=== PATIENT | female | born 1945 | race Native Hawaiian/Other Pacific Islander ===

== ENCOUNTER 2018-12-07 16:52 | Inpatient (IN) | payer MEDICARE ==
[2018-12-07] MEDS ORDERED: Sodium Chloride 0.9% 500 ML IV STA (17:17)
--- NOTE | 2018-12-07 17:17 | C.PDOC ---
History Of Present Illness 73 y/o female presents to the ER complaining of epigastric abdominal pain. Patient describes the pain as burning and she states that the pain radiates up to her chest. Patient reports that she tried to induce vomiting by using her fi nger but she only had heartburn afterwards. Denies having fever,chills, vomiting, and diarrhea. <Amada Moreno - Last Filed: 12/07/18 18:55> History Per: Patient History/Exam Limitations: no limitations Onset/Duration Of Symptoms: Days Current Symptoms Are (Timing): Still Present Severity: Moderate <Amada Moreno - Last Filed: 12/07/18 18:55> <Giacomo Stoddard - Last Filed: 12/07/18 21:49> Time Seen by Provider: 12/07/18 17:05 Chief Complaint (Nursing): Abdominal Pain Past Medical History Reviewed: Historical Data, Nursing Documentation, Vital Signs Vital Signs: Last Vital Signs Temp 98.9 F 12/07/18 16:54 Pulse 90 12/07/18 16:54 Resp 18 12/07/18 16:54 BP 166/76 H 12/07/18 16:54 Pulse Ox 99 12/07/18 16:54 Primary Care Provider: Junior Sanchez - Medical History PMH: HTN Other Surgeries: Hx of surgeries Family History: States: No Known Family Hx - Social History Hx Alcohol Use: No Hx Substance Use: No - Immunization History Hx Tetanus Toxoid Vaccination: No Hx Influenza Vaccination: Yes Hx Pneumococcal Vaccination: No <Amada Moreno - Last Filed: 12/07/18 18:55> Vital Signs: Last Vital Signs Temp 98.6 F 12/07/18 19:11 Pulse 94 H 12/07/18 19:11 Resp 18 12/07/18 19:11 BP 145/75 12/07/18 19:11 Pulse Ox 99 12/07/18 19:11 <Giacomo Stoddard - Last Filed: 12/07/18 21:49> Review Of Systems Except As Marked, All Systems Reviewed And Found Negative. Constitutional: Negative for: Fever, Chills Cardiovascular: Negative for: Chest Pain Respiratory: Negative for: Shortness of Breath Gastrointestinal: Positive for: Nausea, Abdominal Pain. Negative for: Vomiting, Diarrhea <Amada Moreno - Last Filed: 12/07/18 18:55> Physical Exam - Physical Exam Appears: Non-toxic, No Acute Distress Skin: Normal Color, Warm, Dry Head: Atraumatic, Normacephalic Eye(s): bilateral: Normal Inspection Nose: Normal Oral Mucosa: Moist Neck: Supple Chest: Symmetrical Cardiovascular: Rhythm Regular Respiratory: Normal Breath Sounds, No Rales, No Rhonchi, No Wheezing Gastrointestinal/Abdominal: Soft, Tenderness (very mild tenderness to epigastric area), No Guarding, No Rebound Neurological/Psych: Oriented x3, Normal Speech <Amada Moreno - Last Filed: 12/07/18 18:55> ED Course And Treatment - Laboratory Results Result Diagrams: 12/07/18 17:26 12/07/18 17:26 ECG Rhythm: Sinus Rhythm ECG Interpretation: No Acute Changes Rate From EC O2 Sat by Pulse Oximetry: 99 (RA) Pulse Ox Interpretation: Normal - Radiology CXR: Interpreted by Pr CXR Interpretation: Yes: No Acute Disease Progress Note: Labs,ECG, and CXR ordered.Patient treated with IV Fluids and Protonix IV. <Amada Moreno - Last Filed: 12/07/18 18:55> - Laboratory Results Result Diagrams: 12/07/18 17:26 12/07/18 17:26 Lab Results: PT 14.3 SECONDS (9.7-12.2) H 12/07/18 17:26 INR 1.3 12/07/18 17:26 APTT 45.0 SECONDS (21-34) H 12/07/18 17:26 Troponin I < 0.0120 ng/mL (0.00-0.120) 12/07/18 17:26 Total Bilirubin 1.9 mg/dL (0.2-1.3) H 12/07/18 17:26 AST 69 U/L (14-36) H 12/07/18 17:26 ALT 23 U/L (9-52) 12/07/18 17:26 Alkaline Phosphatase 133 U/L (38-126) H 12/07/18 17:26 Total Protein 8.0 g/dL (6.3-8.3) 12/07/18 17:26 Albumin 3.5 g/dL (3.5-5.0) 12/07/18 17:26 Globulin 4.5 gm/dL (2.2-3.9) H 12/07/18 17:26 Albumin/Globulin Ratio 0.8 (1.0-2.1) L 12/07/18 17:26 Lipase 208 U/L (23-300) 12/07/18 17:26 Pulse Ox Interpretation: Normal <Giacomo Stoddard - Last Filed: 12/07/18 21:49> Disposition - Disposition Disposition Time: 18:55 <Amada Moreno - Last Filed: 12/07/18 18:55> Discussed With DrDarshana: Junior Sanchez Comment: accpeted the pt onhis service and took over the care at 9:48PM Doctor Will See Patient In The: Hospital Counseled Patient/Family Regarding: Studies Performed, Diagnosis - POA Present On Arrival: None <Giacomo Stoddard - Last Filed: 12/07/18 21:49> - Disposition Disposition: HOSPITALIZED Condition: FAIR Forms: [employer] (Sami) - Clinical Impression Clinical Impression: Epigastric pain, Cholecystitis - PA / POLITICAL SCIENCE RESEARCH ASSISTANT / Resident Statement MD/DO has reviewed & agrees with the documentation as recorded. - Scribe Statement The provider has reviewed the documentation as recorded by the Liam Mckeon Provider Attestation All medical record entries made by the Haydeeibe were at my direction and personally dictated by me. I have reviewed the chart and agree that the record accurately reflects my personal performance of the history, physical exam, medical decision making, and the department course for this patient. I have also personally directed, reviewed, and agree with the discharge instructions and disposition. <Amada Moreno - Last Filed: 12/07/18 18:55> Physician Patient Turnover Patient Signed Over To: Giacomo Stoddard Handoff Comments: pending abd US report and dispo <Amada Moreno - Last Filed: 12/07/18 18:55> Decision To Admit <Amada Moreno - Last Filed: 12/07/18 18:55> - Pt Status Changed To: Hospital Disposition Of: Inpatient - Admit Certification Admit to Inpatient:: After my assessment, the patient will require hospitalization for at least two midnights. This is because of the severity of symptoms shown, intensity of services needed, and/or the medical risk in this patient being treated as an outpatient. - InPatient: Physician Admission Certification:: After my assessment, the patient will require hospitalization for at least two midnights. This is because of the severity of symptoms shown, intensity of services needed, and/or the medical risk in this patient being treated as an outpatient. - . Bed Request Type: Regular Admitting Physician: Junior Sanchez <Giacomo Stoddard - Last Filed: 12/07/18 21:49> - . Patient Diagnosis: Epigastric pain, Cholecystitis
[2018-12-07] MEDS ORDERED: Sodium Chloride 0.9% 1,000 ML ONE (17:34)
[2018-12-07 17:36] LABS: BASO % 0.2 % (0.0-2.0); HEMOGLOBIN 12.6 g/dL (11.0-16.0); LYMPH # 0.5 K/uL (1.0-4.3); LYMPH % 12.7 % (20.0-40.0); MEAN CELL VOLUME 99.5 fL (81.0-99.0); MEAN CORPUSCULAR HEMOGLOBIN 33.9 pg (27.0-31.0); MEAN CORPUSCULAR HGB CONC 34.1 g/dL (33.0-37.0); MONO # 0.1 K/uL (0.0-0.8); MONO % 2.8 % (0.0-10.0); NEUT # 3.1 K/uL (1.8-7.0); NEUT % 84.3 % (50.0-75.0); NRBC % 0.2 % (0.0-2.0); RBC 3.71 Mil/uL (3.80-5.20); RED CELL DISTRIBUTION WIDTH 16.7 % (11.5-14.5); WHITE BLOOD COUNT 3.7 K/uL (4.8-10.8)
[2018-12-07 17:46] LABS: INR 1.3; PROTHROMBIN TIME 14.3 SECONDS (9.7-12.2)
[2018-12-07 17:48] LABS: ALB/GLOB RATIO 0.8 (1.0-2.1); ALBUMIN 3.5 g/dL (3.5-5.0); ALT/SGPT 23 U/L (9-52); AST/SGOT 69 U/L (14-36); BLOOD UREA NITROGEN 20 mg/dL (7-17); CALCIUM 9.2 mg/dl (8.6-10.4); GFR NON-AFRICAN AMERICAN > 60; LIPASE 208 U/L (23-300)
[2018-12-07 18:02] LABS: CK-MB 0.66 ng/mL (0.0-3.38)
[2018-12-07] MEDS ORDERED: Piperacillin/Tazobact 3.375 gm 100 ML IVPB STA (21:49)
--- NOTE | 2018-12-07 21:53 | US ---
Date of service: 12/07/2018 HISTORY: Pain epigastric COMPARISON: None. TECHNIQUE: Sonographic evaluation of the right upper quadrant of the abdomen. FINDINGS: LIVER: Measures 11.7 cm in length. Patent portal and hepatic venous systems. Hepatopedal blood flow. Fatty infiltration manifest ultrasonographically as increased echogenicity of the liver parenchyma. No mass. No intrahepatic bile duct dilatation. GALLBLADDER: Cholelithiasis. Negative study for gallbladder wall thickening, pericholecystic fluid, sonographic Valencia's sign. COMMON BILE DUCT: Measures 4.4 mm. No stones. No dilatation. PANCREAS: Unremarkable as visualized. No mass. No ductal dilatation. RIGHT KIDNEY: Measures 4.7 x 10.4 cm in length. Normal echogenicity. No calculus, mass, or hydronephrosis. AORTA: No aneurysmal dilatation. IVC: Unremarkable. OTHER FINDINGS: None . IMPRESSION: Cholelithiasis. No sonographic evidence of acute cholecystitis. No significant interval change compared to the prior examination(s).
--- NOTE | 2018-12-07 21:56 | RAD ---
Date of service: 12/07/2018 PROCEDURE: CHEST RADIOGRAPH, 1 VIEW HISTORY: epigastric pain COMPARISON: None available. FINDINGS: LUNGS: Clear. PLEURA: No pneumothorax or pleural fluid seen. CARDIOVASCULAR: No aortic atherosclerotic calcification present. No radiographic findings to suggest acute or significant cardiovascular disease. OSSEOUS STRUCTURES: No significant abnormalities. VISUALIZED UPPER ABDOMEN: Normal. OTHER FINDINGS: None. IMPRESSION: No active disease.
[2018-12-07] MEDS ORDERED: Piperacillin/Tazobact 3.375 gm 100 ML IVPB ONE (22:41)
[2018-12-07] MEDS ORDERED: HYDROmorphone 0.5 mg/0.5 ml ISec IVP PRN (23:27)
--- NOTE | 2018-12-07 23:30 | CP.PCM.CON ---
History of Present Illness - History of Present Illness History of Present Illness: General surgery note for Dr. Kamryn Gutiérrez, PGY-2 Pt seen/examined at bedsid 73F w/PMH sig for cholelithiasis consulted for epigastric abdominal pain x 1 day. Pt reports eating lumpia last night, then at 3am had onset of epigastric abdominal pain which woke her up from sleep. Pain is pressure like, severe, radiates to chest, intermittent. Pt reports trying Kaopectate without alleviation. Admits to nausea, weakness. Pt reports self-induced emesis (nb, bilious) x 3 without relief. Denies CP, SOB, constipation, F & C, hematuria, hematochezia, hematemesis, dysuria, sore throat, MOY, other complaints. In ED, T bili 1.9, LFTs mildly elevated. Ab U/S with GB neck stone- non mobile. PMH: HTN, occasional constipation, cholelithiasis PSH: Hysterectomy, hemorrhoidectomy All: NKDA SH: Denies tobacco, ETOH or illicit drug use FH: Father had stomach CA PMD: Dr. Robb Sanchez Review of Systems - Review of Systems All systems: reviewed and no additional remarkable complaints except - Constitutional Constitutional: Weakness. absent: Chills, Fever - EENT Eyes: absent: Change in Vision Ears: absent: Dizziness Nose/Mouth/Throat: absent: Sore Throat - Cardiovascular Cardiovascular: absent: Chest Pain - Respiratory Respiratory: absent: Cough - Gastrointestinal Gastrointestinal: Abdominal Pain, Nausea, Vomiting. absent: Constipation, Diarrhea, Hematemesis, Hematochezia, Melena - Genitourinary Genitourinary: absent: Dysuria, Hematuria - Musculoskeletal Musculoskeletal: absent: Back Pain - Integumentary Integumentary: absent: Rash - Neurological Neurological: absent: Dizziness - Psychiatric Psychiatric: absent: Change in Appetite - Endocrine Endocrine: absent: Fatigue Past Patient History - Past Social History Smoking Status: Never Smoked - CARDIAC Hx Hypertension: Yes - PSYCHIATRIC Hx Substance Use: No - SURGICAL HISTORY Hx Surgeries: Yes Hx Hysterectomy: Yes - ANESTHESIA Hx Anesthesia: Yes Hx Anesthesia Reactions: No Meds Allergies/Adverse Reactions: Allergies Allergy/AdvReac Type Severity Reaction Status Date / Time No Known Allergies Allergy Verified 12/07/18 16:58 - Medications Medications: Current Medications Acetaminophen (Tylenol 325mg Tab) 650 mg PO Q6 PRN PRN Reason: Pain, moderate (4-7) Hydromorphone HCl (Dilaudid) 0.25 mg IVP Q4H PRN PRN Reason: Pain, severe (8-10) Piperacillin Sod/Tazobactam (Sod 3.375 gm/ Sodium Chloride) 100 mls @ 200 mls/hr IVPB Q6H CHERYL; Protocol Lactated Ringer's (Lactated Ringer's) 1,000 mls @ 90 mls/hr IV .Q11H7M CHERYL Ondansetron HCl (Zofran Inj) 4 mg IVP Q6H PRN PRN Reason: Nausea/Vomiting Physical Exam - Constitutional Appears: Non-toxic, No Acute Distress - Head Exam Head Exam: ATRAUMATIC, NORMAL INSPECTION, NORMOCEPHALIC - Eye Exam Eye Exam: EOMI, Normal appearance - ENT Exam ENT Exam: Mucous Membranes Moist, Normal Exam - Neck Exam Neck exam: Positive for: Full Rom, Normal Inspection - Respiratory Exam Respiratory Exam: Clear to Auscultation Bilateral, NORMAL BREATHING PATTERN - Cardiovascular Exam Cardiovascular Exam: Tachycardia - GI/Abdominal Exam GI & Abdominal Exam: Soft, Tenderness (epigastric). absent: Distended, Firm, Guarding, Hernia, Rigid - Extremities Exam Extremities exam: Positive for: normal inspection - Back Exam Back exam: NORMAL INSPECTION. absent: CVA tenderness (L), CVA tenderness (R) - Neurological Exam Neurological exam: Alert, CN II-XII Intact, Oriented x3 - Psychiatric Exam Psychiatric exam: Normal Affect, Normal Mood - Skin Skin Exam: Dry, Intact, Normal Color, Warm Results - Vital Signs Recent Vital Signs: Last Vital Signs Temp 98.2 F 12/07/18 22:47 Pulse 84 12/07/18 22:47 Resp 15 12/07/18 22:47 BP 140/89 12/07/18 22:47 Pulse Ox 97 12/07/18 22:47 - Labs Result Diagrams: 12/07/18 17:26 12/07/18 17:26 Labs: Laboratory Results - last 24 hr 12/07/18 12/07/18 12/07/18 17:26 17:26 17:26 WBC 3.7 L RBC 3.71 L Hgb 12.6 Hct 37.0 MCV 99.5 H MCH 33.9 H MCHC 34.1 RDW 16.7 H Plt Count 108 L MPV 9.0 Neut % (Auto) 84.3 H Lymph % (Auto) 12.7 L [place] % (Auto) 2.8 Eos % (Auto) 0.0 Baso % (Auto) 0.2 Neut # (Auto) 3.1 Lymph # (Auto) 0.5 L [place] # (Auto) 0.1 Eos # (Auto) 0.0 Baso # (Auto) 0.0 Differential Comment PT 14.3 H INR 1.3 APTT 45.0 H Sodium 140 Potassium 4.3 Chloride 106 Carbon Dioxide 24 Anion Gap 14 BUN 20 H Creatinine 0.5 L Est GFR ( Amer) > 60 Est GFR (Non-Af Amer) > 60 Random Glucose 162 H Calcium 9.2 Total Bilirubin 1.9 H AST 69 H ALT 23 Alkaline Phosphatase 133 H Total Creatine Kinase 40 CK-MB (Mass) 0.66 Troponin I < 0.0120 Total Protein 8.0 Albumin 3.5 Globulin 4.5 H Albumin/Globulin Ratio 0.8 L Lipase 208 Assessment & Plan - Assessment and Plan (Free Text) Assessment: 73F w/PMH sig for cholelithiasis with biliary colic due to impacted GB neck stone Plan: Admit to medical service NPO pMN IVF ABx Anti-emetic Pain control Plan for OR 5/3 Consent in chart FU AM labs DW Dr. Daja Gutiérrez, PGY-2 - Date & Time Date: 12/07/18 Time: 23:36
[2018-12-08] MEDS: Piperacillin/Tazobact 3.375 GM in Sodium Chloride 100 ML IVPB SCH ×5 (05:15→22:32)
[2018-12-08 08:48] LABS: BASO % 0.5 % (0.0-2.0); EOS # 0.1 K/uL (0.0-0.7); EOS % 1.8 % (0.0-4.0); HEMOGLOBIN 10.8 g/dL (11.0-16.0); LYMPH # 1.5 K/uL (1.0-4.3); LYMPH % 31.7 % (20.0-40.0); MEAN CORPUSCULAR HEMOGLOBIN 34.4 pg (27.0-31.0); MEAN CORPUSCULAR HGB CONC 34.1 g/dL (33.0-37.0); MEAN PLATELET VOLUME 9.3 fL (7.2-11.7); MONO # 0.5 K/uL (0.0-0.8); MONO % 10.4 % (0.0-10.0); NEUT # 2.6 K/uL (1.8-7.0); NEUT % 55.6 % (50.0-75.0); NRBC % 0.2 % (0.0-2.0); RBC 3.13 Mil/uL (3.80-5.20); RED CELL DISTRIBUTION WIDTH 16.5 % (11.5-14.5); WHITE BLOOD COUNT 4.6 K/uL (4.8-10.8)
[2018-12-08 09:10] LABS: ALB/GLOB RATIO 0.7 (1.0-2.1); ALBUMIN 2.6 g/dL (3.5-5.0); ALT/SGPT 30 U/L (9-52); AST/SGOT 50 U/L (14-36); BLOOD UREA NITROGEN 21 mg/dL (7-17); CALCIUM 8.4 mg/dl (8.6-10.4); GFR NON-AFRICAN AMERICAN > 60
[2018-12-08] MEDS: Lactated Ringer's 1,000 ML IV SCH ×3 (11:01→22:32)
[2018-12-08] MEDS ORDERED: Bupivacaine-Epi 0.5%-1:200,000 PF Inj ONE (13:44)
[2018-12-08] MEDS ORDERED: Iohexol 240 (50 ml) ONE (13:44)
[2018-12-08] MEDS ORDERED: Propofol 10 mg/ml Inj (20 ML) ONE (13:51)
[2018-12-08] MEDS ORDERED: Midazolam 2 MG/2 ML VIAL ONE (13:51)
[2018-12-08] MEDS ORDERED: Neostigmine 1:1000 (1 mg/ml) Inj ONE (15:00)
--- NOTE | 2018-12-08 15:17 | PCM.SURG1 ---
Surgeon's Initial Post Op Note - Surgeon's Notes Surgeon: MD Daja Mobile Application Developer: Yael, PGY3. , PGY2 Pre-Operative Diagnosis: Acute cholecystitis Operative Findings: Inflammed gallbladder. Cirrhosis nodular liver Post-Operative Diagnosis: Acute Cholecystitis Operation Performed: Laparoscopic Cholecystectomy, Intraoperative cholangiogram Specimen/Specimens Removed: gallbladder Estimated Blood Loss: EBL {In ML}: 40 Date of Surgery/Procedure: 12/08/18 Time of Surgery/Procedure: 14:00
[2018-12-08] MEDS ORDERED: Lactated Ringer's 1,000 ML IV ONE (15:42)
[2018-12-08] MEDS: HYDROmorphone 0.5 mg/0.5 ml ISec IVP PRN ×2 (16:50→16:51)
[2018-12-08 18:12] VITALS: RESP 20
--- NOTE | 2018-12-08 22:31 | CP.PCM.HP ---
History of Present Illness - History of Present Illness History of Present Illness: 73 yo female came to the ED at [facility] complaining of epigastric pain with nausea vomiting last night. Denies any fever. She is known to have a hypertension, a cholelithiasis. In the ED, an US of the abdomen revealed a gallstone at the neck of the gallbladder. Serum bilirubin : 1.9 Serum Lipase : Normal. Present on Admission - Present on Admission Any Indicators Present on Admission: No Review of Systems - Gastrointestinal Gastrointestinal: Abdominal Pain, Nausea, Vomiting Past Patient History - Infectious Disease Hx of Infectious Diseases: None - Tetanus Immunizations Tetanus Immunization: Unknown - Past Medical History & Family History Past Medical History?: Yes - Past Social History Smoking Status: Never Smoked Alcohol: None Drugs: Denies Home Situation {Lives}: With Family Domestic Violence: Negative - CARDIAC Hx Hypertension: Yes - MUSCULOSKELETAL/RHEUMATOLOGICAL Hx Falls: No - GASTROINTESTINAL Hx Gall Bladder Disease: Yes (gallstones.) - PSYCHIATRIC Hx Substance Use: No - SURGICAL HISTORY Hx Surgeries: Yes Hx Hysterectomy: Yes - ANESTHESIA Hx Anesthesia: Yes Hx Anesthesia Reactions: No Meds Allergies/Adverse Reactions: Allergies Allergy/AdvReac Type Severity Reaction Status Date / Time No Known Allergies Allergy Verified 12/07/18 16:58 Physical Exam - Constitutional Appears: Well, No Acute Distress - Head Exam Head Exam: NORMAL INSPECTION - Eye Exam Eye Exam: Normal appearance - ENT Exam ENT Exam: Normal Exam - Neck Exam Neck exam: Positive for: Normal Inspection - Respiratory Exam Respiratory Exam: Clear to Auscultation Bilateral, NORMAL BREATHING PATTERN - Cardiovascular Exam Cardiovascular Exam: REGULAR RHYTHM - GI/Abdominal Exam GI & Abdominal Exam: Normal Bowel Sounds, Tenderness Additional comments: Tender RUQ and epigastric area. - Rectal Exam Rectal Exam: Deferred - Extremities Exam Extremities exam: Positive for: normal inspection - Back Exam Back exam: NORMAL INSPECTION - Neurological Exam Neurological exam: Alert, Oriented x3 - Psychiatric Exam Psychiatric exam: Anxious - Skin Skin Exam: Dry, Intact Results - Vital Signs Recent Vital Signs: Last Vital Signs Temp 97.9 F 12/08/18 18:00 Pulse 87 12/08/18 18:00 Resp 20 12/08/18 18:00 BP 126/70 12/08/18 18:00 Pulse Ox 95 12/08/18 18:00 - Labs Result Diagrams: 12/08/18 08:28 12/08/18 08:28 Labs: Laboratory Results - last 24 hr 12/08/18 12/08/18 12/08/18 08:28 08:28 08:28 WBC 4.6 L RBC 3.13 L Hgb 10.8 L Hct 31.6 L MCV 101.0 H MCH 34.4 H MCHC 34.1 RDW 16.5 H Plt Count 97 L MPV 9.3 Neut % (Auto) 55.6 Lymph % (Auto) 31.7 [place] % (Auto) 10.4 H Eos % (Auto) 1.8 Baso % (Auto) 0.5 Neut # (Auto) 2.6 Lymph # (Auto) 1.5 [place] # (Auto) 0.5 Eos # (Auto) 0.1 Baso # (Auto) 0.0 Differential Comment Sodium 140 Potassium 3.6 Chloride 109 H Carbon Dioxide 26 Anion Gap 9 L BUN 21 H Creatinine 0.7 Est GFR ( Amer) > 60 Est GFR (Non-Af Amer) > 60 POC Glucose (mg/dL) Random Glucose 82 D Calcium 8.4 L Phosphorus 2.5 Magnesium 2.0 Total Bilirubin 2.8 H AST 50 H D ALT 30 Alkaline Phosphatase 89 Total Protein 6.0 L Albumin 2.6 L D Globulin 3.5 Albumin/Globulin Ratio 0.7 L Blood Type A POSITIVE Antibody Screen Negative 12/08/18 21:37 WBC RBC Hgb Hct MCV MCH MCHC RDW Plt Count MPV Neut % (Auto) Lymph % (Auto) [place] % (Auto) Eos % (Auto) Baso % (Auto) Neut # (Auto) Lymph # (Auto) [place] # (Auto) Eos # (Auto) Baso # (Auto) Differential Comment Sodium Potassium Chloride Carbon Dioxide Anion Gap BUN Creatinine Est GFR ( Amer) Est GFR (Non-Af Amer) POC Glucose (mg/dL) 194 H Random Glucose Calcium Phosphorus Magnesium Total Bilirubin AST ALT Alkaline Phosphatase Total Protein Albumin Globulin Albumin/Globulin Ratio Blood Type Antibody Screen Assessment & Plan (1) Acute cholecystitis Assessment and Plan: Keep NPO. Surgical evaluation for cholecystectomy. Status: Acute Decision To Admit - Pt Status Changed To: Hospital Disposition Of: Inpatient - Admit Certification Admit to Inpatient:: After my assessment, the patient will require hospitalization for at least two midnights. This is because of the severity of symptoms shown, intensity of services needed, and/or the medical risk in this patient being treated as an outpatient. - InPatient: Physician Admission Certification:: After my assessments, the patient requires hospitalization for at least 2 midnights. - . Bed Request Type: Regular Admitting Physician: Junior Sanchez
[2018-12-08 23:14] LABS: HEMOGLOBIN 10.8 g/dL (11.0-16.0); MEAN CELL VOLUME 100.2 fL (81.0-99.0); MEAN CORPUSCULAR HEMOGLOBIN 34.2 pg (27.0-31.0); MEAN CORPUSCULAR HGB CONC 34.2 g/dL (33.0-37.0); MEAN PLATELET VOLUME 9.3 fL (7.2-11.7); RBC 3.15 Mil/uL (3.80-5.20); RED CELL DISTRIBUTION WIDTH 16.6 % (11.5-14.5); WHITE BLOOD COUNT 7.2 K/uL (4.8-10.8)
--- NOTE | 2018-12-09 02:00 | OP ---
PROCEDURE DATE: 12/08/2018 PREOPERATIVE DIAGNOSIS: Symptomatic cholelithiasis. POSTOPERATIVE DIAGNOSIS: Acute on chronic cholecystitis. PROCEDURES: 1. Laparoscopic cholecystectomy. 2. Intraoperative cholangiogram. 3. Laparoscopic extensive lysis of adhesions. SURGEON: Travis Farnsworth DO ASSISTANTS: 1. Srini Conley DO, PGY-3. 2. Yared Chambers DO, PGY-2. ANESTHESIA: General. ESTIMATED BLOOD LOSS: 40 mL. SPECIMENS: Gallbladder. INDICATIONS FOR SURGERY: This is a 73-year-old female who came in with pretty severe right upper quadrant pain. After imaging, ultrasound revealed an impacted stone in the neck of the gallbladder. T-bili was 1.9. After discussion with the patient's family members, decision was made to go for a laparoscopic open cholecystectomy. All risks and benefits were explained to the patient. The patient agreed to the plan set forth. DESCRIPTION OF PROCEDURE: The patient was brought into the operating room and placed in supine position. The patient's general anesthesia was induced and intubated. Confirmation was obtained with end-tidal CO2. A time-out was taken verifying the correct patient, procedure, and laterality. The patient was then prepped and draped in the usual sterile fashion using chlorhexidine. It was noted the patient had a previous midline incision. Decision was made to enter with the Veress needle in the left upper quadrants subxiphoid. The fascia was elevated, and the Veress needle was inserted. Proper position was confirmed by aspiration and flush of the saline meniscus test. Abdomen was then insufflated with carbon dioxide to a pressure of 15 mmHg. Opening pressure was 4 mmHg. At this time, a 5-mm port was then inserted subxiphoid. No initial injuries were noted on the initial trocar placement site. Upon examination of the entire abdomen, there was extensive small bowel adhesed throughout the entire anterior abdominal wall. This abdomen. A second port was then placed in the left upper quadrant four fingerbreadths below the costal margin. After insertion, no initial injuries were noted at this time. A sharp laparoscopic scissor was then used to extensively lyse the adhesion. Hemostasis was appropriately achieved using electrocautery. After extensive enterolysis was performed up to and around the umbilicus and the left lower quadrant around the gallbladder and liver. Visiport technique was used to enter supraumbilical. After placement of the 10-mm port, there were no initial injuries noted at this time. The camera was then passed through the supraumbilical port and graspers were then used to continue with the surgery and procedure. Extensive adhesions were taken down and omentum were sharply lysed at the gallbladder. The dome of the gallbladder was then grasped with atraumatic graspers and retracted over the dome of the liver. A large stone was palpated at the neck of the gallbladder and was squeezed retrograde safely. The infundibulum was then grasped with the atraumatic grasper and retracted laterally and towards the right upper quadrant. This maneuver exposed Calot triangle. The peritoneum overlying the gallbladder and infundibulum was then incised and a cystic duct and cystic artery were identified circumferentially. It was noted that there was significant inflammation around the gallbladder. At this time, cholangiogram equipment was then tested. A clip was placed on the cystic duct and close to the gallbladder. A beto was made with the cystic duct and a cholangiogram was successfully threaded. It was noted that there was significant sludge upon passing the catheter. Cholangiogram was obtained and showed good flow of bile into the duodenum and an intact biliary tree. There were no other filling defects noted. The cystic duct and cystic artery were then doubly clipped inferiorly and one clip superiorly and incised with sharp scissors. Gallbladder was then dissected from its peritoneal attachment from the liver by using electrocautery. It was noted that the liver was not of normal texture or contour. It looked like there was significant cirrhosis. However, a good plane was able to be identified. By using Hook electrocautery, the gallbladder was successfully able to be taken off the liver bed. Appropriate hemostasis was achieved in the gallbladder fossa using electrocautery. The site of the cystic duct and cystic artery were then checked and clips were in place. Irrigation was performed and taken back in Montano's pouch. All irrigation was appropriate to allow clear fluid return. The secondary trocars were removed under direct visualization. There was no bleeding noted. The laparoscope was then withdrawn from the supraumbilical port. The laparoscopic EndoCatch bag with the specimen in the bag was withdrawn from the supraumbilical port. It was necessary for some dilation with the Mable of the fascia to be able to successfully remove the specimen. Everything, bag and gallbladder remained intact. The abdomen was then allowed to collapse safely at this time. The fascia was then closed with 0 Vicryl on a UR-6 in a [id number] fashion. There was no defect noted. The remainder of the skin incisions were closed with 4-0 Monocryl. Sterile dressing of Dermabond was applied at this time. The patient was awakened and taken to the Postanesthesia Care Unit in stable condition. All counts were correct at the end of the case. Dr. Farnsworth was present and participated in all aspects of the case. Yared Chambers DO Travis Farnsworth MD
[2018-12-09] MEDS: Piperacillin/Tazobact 3.375 GM in Sodium Chloride 100 ML IVPB SCH ×2 (04:52→11:01)
[2018-12-09] MEDS ORDERED: Benzocaine/Menthol (Cepacol) Lozenge MT PRN (07:47)
--- NOTE | 2018-12-09 08:13 | CP.PCM.PN ---
Subjective - Date & Time of Evaluation Date of Evaluation: 12/09/18 Time of Evaluation: 08:10 - Subjective Subjective: Surgery Progress Note- Dr. Farnsworth No new complaints. tolerating regular diet. Denies nausea, vomiting. Incisions w/ dermabond C/D/I. + OOb and ambulating Objective - Vital Signs/Intake and Output Vital Signs (last 24 hours): Temp Pulse Resp BP Pulse Ox 98.7 F 82 20 113/63 93 L 12/08/18 23:40 12/08/18 23:40 12/08/18 23:40 12/08/18 23:40 12/08/18 23:40 Intake and Output: 12/09/18 12/09/18 06:59 18:59 Intake Total 560 Balance 560 - Medications Medications: Current Medications Acetaminophen (Tylenol 325mg Tab) 650 mg PO Q6 PRN PRN Reason: Pain, moderate (4-7) Benzocaine/Menthol (Cepacol Sore Throat) 1 jairon MT Q2 PRN PRN Reason: Sore Throat Hydromorphone HCl (Dilaudid) 0.25 mg IVP Q4H PRN PRN Reason: Pain, severe (8-10) Piperacillin Sod/Tazobactam (Sod 3.375 gm/ Sodium Chloride) 100 mls @ 200 mls/hr IVPB Q6H [facility]; Protocol Last Admin: 12/09/18 04:52 Dose: 200 mls/hr Lactated Ringer's (Lactated Ringer's) 1,000 mls @ 90 mls/hr IV .Q11H7M [facility] Last Admin: 12/08/18 22:32 Dose: 90 mls/hr Ondansetron HCl (Zofran Inj) 4 mg IVP Q6H PRN PRN Reason: Nausea/Vomiting Pneumococcal Polyvalent Vaccine (Pneumovax 23 Vaccine) 0.5 ml IM .ONCE ONE Stop: 12/09/18 10:01 - Labs Labs: 12/08/18 23:02 12/08/18 08:28 PT 14.3 SECONDS (9.7-12.2) H 12/07/18 17:26 INR 1.3 12/07/18 17:26 APTT 45.0 SECONDS (21-34) H 12/07/18 17:26 - Constitutional Appears: Non-toxic, No Acute Distress - Head Exam Head Exam: ATRAUMATIC - Eye Exam Eye Exam: EOMI. absent: Scleral icterus - ENT Exam ENT Exam: Mucous Membranes Moist - Respiratory Exam Respiratory Exam: NORMAL BREATHING PATTERN. absent: Accessory Muscle Use, Respiratory Distress - Cardiovascular Exam Cardiovascular Exam: REGULAR RHYTHM. absent: Bradycardia, Tachycardia - GI/Abdominal Exam GI & Abdominal Exam: Soft, Tenderness (minimal abd pain around incisions). absent: Distended, Firm, Guarding, Rigid - Extremities Exam Extremities Exam: absent: Calf Tenderness - Neurological Exam Neurological Exam: Alert, Awake, Oriented x3 - Psychiatric Exam Psychiatric exam: Normal Affect - Skin Skin Exam: Intact, Warm Assessment and Plan - Assessment and Plan (Free Text) Assessment: 73F s/p Lap coco, extensive lysis of adhesions POD#1 Plan: - diet as tolerated - OOB and ambulate - pain control PRN - cleared for discharge from surgical stand [place] - follow up in Clinic w/ Dr. Farnsworth this - discussed w/ Dr. Farnsworth surgical Attending [facility] PGY2
[2018-12-09 08:18] VITALS: BP 115/62; PULSE 76; TEMP 98.9; O2SAT 94
[2018-12-09] MEDS ORDERED: Pneumococcal 23-Valent Vaccine IM ONE (10:00)
[2018-12-09 11:21] LABS: BASO # 0.1 K/uL (0.0-0.2); EOS # 0.1 K/uL (0.0-0.7); EOS % 1.3 % (0.0-4.0); HEMOGLOBIN 10.3 g/dL (11.0-16.0); LYMPH # 1.2 K/uL (1.0-4.3); LYMPH % 22.4 % (20.0-40.0); MEAN CORPUSCULAR HGB CONC 33.8 g/dL (33.0-37.0); MEAN PLATELET VOLUME 9.8 fL (7.2-11.7); MONO # 0.5 K/uL (0.0-0.8); MONO % 9.8 % (0.0-10.0); NEUT # 3.7 K/uL (1.8-7.0); NEUT % 65.5 % (50.0-75.0); RBC 2.93 Mil/uL (3.80-5.20); RED CELL DISTRIBUTION WIDTH 16.3 % (11.5-14.5); WHITE BLOOD COUNT 5.6 K/uL (4.8-10.8)
[2018-12-09 11:23] LABS: MEAN CELL VOLUME 103.5 fL (81.0-99.0)
[2018-12-09 11:47] LABS: ALB/GLOB RATIO 0.7 (1.0-2.1); ALBUMIN 2.6 g/dL (3.5-5.0); ALT/SGPT 29 U/L (9-52); AST/SGOT 74 U/L (14-36); BLOOD UREA NITROGEN 28 mg/dL (7-17); CALCIUM 8.1 mg/dl (8.6-10.4); GFR NON-AFRICAN AMERICAN > 60
--- NOTE | 2018-12-09 14:25 | CP.PCM.PN ---
Subjective - Date & Time of Evaluation Date of Evaluation: 12/09/18 Time of Evaluation: 14:23 - Subjective Subjective: Patient had lap coco yesterday. Hasas no complaint of abdominal pain, nausea, fever. Tolerating diet and passing flatus. WBC: 5.6 Hgb:10.3 T.Bilirubin: 3.0 AST: 74 Alkaline Phos: normal. Will discharged home today. F/U with me in 5-[address] Farnsworth in 1 week. Objective - Vital Signs/Intake and Output Vital Signs (last 24 hours): Temp Pulse Resp BP Pulse Ox 98.9 F 76 20 115/62 94 L 12/09/18 07:00 12/09/18 07:00 12/09/18 07:00 12/09/18 07:00 12/09/18 07:00 Intake and Output: 12/09/18 12/09/18 06:59 18:59 Intake Total 560 Balance 560 - Medications Medications: Current Medications Acetaminophen (Tylenol 325mg Tab) 650 mg PO Q6 PRN PRN Reason: Pain, moderate (4-7) Benzocaine/Menthol (Cepacol Sore Throat) 1 jairon MT Q2 PRN PRN Reason: Sore Throat Hydromorphone HCl (Dilaudid) 0.25 mg IVP Q4H PRN PRN Reason: Pain, severe (8-10) Piperacillin Sod/Tazobactam (Sod 3.375 gm/ Sodium Chloride) 100 mls @ 200 mls/hr IVPB Q6H [facility]; Protocol Last Admin: 12/09/18 11:01 Dose: 200 mls/hr Lactated Ringer's (Lactated Ringer's) 1,000 mls @ 90 mls/hr IV .Q11H7M [facility] Last Admin: 12/08/18 22:32 Dose: 90 mls/hr Ondansetron HCl (Zofran Inj) 4 mg IVP Q6H PRN PRN Reason: Nausea/Vomiting - Labs Labs: 12/09/18 11:15 12/09/18 11:15 PT 14.3 SECONDS (9.7-12.2) H 12/07/18 17:26 INR 1.3 12/07/18 17:26 APTT 45.0 SECONDS (21-34) H 12/07/18 17:26 - Constitutional Appears: Well, No Acute Distress - Head Exam Head Exam: NORMAL INSPECTION - Eye Exam Eye Exam: Normal appearance Pupil Exam: NORMAL ACCOMODATION - ENT Exam ENT Exam: Normal Exam - Neck Exam Neck Exam: Normal Inspection - Respiratory Exam Respiratory Exam: Clear to Ausculation Bilateral, NORMAL BREATHING PATTERN - Cardiovascular Exam Cardiovascular Exam: REGULAR RHYTHM - GI/Abdominal Exam GI & Abdominal Exam: Soft, Normal Bowel Sounds - Rectal Exam Rectal Exam: Deferred - Extremities Exam Extremities Exam: Normal Inspection - Back Exam Back Exam: NORMAL INSPECTION - Neurological Exam Neurological Exam: Alert, Awake, Normal Gait, Oriented x3 - Psychiatric Exam Psychiatric exam: Anxious - Skin Skin Exam: Dry, Intact, Normal Color, Warm Assessment and Plan (1) Acute cholecystitis Assessment & Plan: Doing good. POD#1. To be discharged home. Status: Acute
--- NOTE | 2018-12-11 14:28 | CARD ---
APPROVED REPORT Date of service: 12/07/2018 EKG Measurement Heart [id number] <Conclusion> Normal sinus rhythm with sinus arrhythmia Normal ECG
== END 2018-12-09 16:45 | disposition home or self-care (01) | DRG 419 ==
LOC: C.ER 16:52 → C.9E 21:46 → C.6T 22:50
PROVIDERS: ADMIT Internal Medicine Cardiovascular Disease; ATTEND Internal Medicine Cardiovascular Disease
PROC: 0DNU4ZZ Release Omentum, Percutaneous Endoscopic Approach (ICD-10-PCS; 2018-12-08)
PROC: BF131ZZ Fluoroscopy of Gallbladder and Bile Ducts using Low Osmolar Contrast (ICD-10-PCS; 2018-12-08)
PROC: 0FT44ZZ Resection of Gallbladder, Percutaneous Endoscopic Approach (ICD-10-PCS; principal; 2018-12-08 12:45)
DX: K80.12 Calculus of gallbladder with acute and chronic cholecystitis without obstruction (principal); K66.0 Peritoneal adhesions (postprocedural) (postinfection); K74.60 Unspecified cirrhosis of liver; I10 Essential (primary) hypertension; Z80.0 Family history of malignant neoplasm of digestive organs; Z90.710 Acquired absence of both cervix and uterus